=== PATIENT | male | born 1980 | race Caucasian/White ===

== ENCOUNTER 2021-11-26 12:13 | Emergency (ER) | payer BC ==
[2021-11-26 12:53] LABS: ESTIMATED GFR > 60 (>60)
[2021-11-26] MEDS: LORazepam 2 MG/ML SDV IM STA (12:57)
[2021-11-26] MEDS: Promethazine 25 MG/ML SDV IM STA (12:57)
[2021-11-26] MEDS: Sodium Chloride 0.9% 1,000 ML IV SCH (13:30)
[2021-11-26] MEDS: Ondansetron 4 MG/2 ML SDV IVPUSH ONE (13:37)
[2021-11-26] MEDS: Pantoprazole 40 MG Vial IVPUSH ONE (14:01)
[2021-11-26] MEDS: Alum Hydroxide/Mag Hydroxide 15 ML, Lidocaine 2% 15 ML PO ONE ×2 (15:00)
== END 2021-11-26 16:45 | disposition home or self-care (01) ==
LOC: FB.ED 12:13
DX: K21.9 Gastro-esophageal reflux disease without esophagitis (principal); F41.1 Generalized anxiety disorder; Z88.0 Allergy status to penicillin; Z88.2 Allergy status to sulfonamides
CPT/HCPCS: 36415; 80053; 82150; 83690; 85025; 96361; 96372; 96374; 96375; 99284; A9270; C9113; J2060; J2405; J2550; J7030; 99282